=== PATIENT | female | born 2000 ===

== ENCOUNTER 2021-08-06 13:46 | Outpatient (CLI) | payer OTHER | END 2021-08-06 16:10 | disposition home or self-care (01) | LOC: PRENATAL 13:46 | PROVIDERS: ATTEND Obstetrics & Gynecology Maternal & Fetal Medicine | DX: O35.0XX0 Maternal care for (suspected) central nervous system malformation in fetus, not applicable or unspecified (principal); O35.3XX0 Maternal care for (suspected) damage to fetus from viral disease in mother, not applicable or unspecified; Z3A.25 25 weeks gestation of pregnancy ==

== ENCOUNTER 2021-09-29 10:22 | Outpatient (CLI) | payer OTHER | END 2021-09-29 11:53 | disposition home or self-care (01) | LOC: PRENATAL 10:22 | PROVIDERS: ATTEND Obstetrics & Gynecology Maternal & Fetal Medicine | DX: O35.0XX0 Maternal care for (suspected) central nervous system malformation in fetus, not applicable or unspecified (principal); O35.3XX0 Maternal care for (suspected) damage to fetus from viral disease in mother, not applicable or unspecified; Z3A.33 33 weeks gestation of pregnancy ==